=== PATIENT | male | born 1950 | race Caucasian/White ===

== ENCOUNTER 2018-12-03 11:36 | Emergency (ER) | payer MEDICARE, OTHER ==
[2018-12-03 12:04] LABS: ABSOLUTE BASOPHILS # (AUTO) 0.1 10^3/uL (0.0-0.2); ABSOLUTE LYMPHOCYTES (AUTO) 1.4 10^3/uL (0.5-4.7); ABSOLUTE MONOCYTES (AUTO) 0.6 10^3/uL (0.1-1.4); ABSOLUTE NEUT (AUTO) 6.2 10^3/uL (1.7-8.2); BASOPHILS % (AUTO) 0.9 % (0-2); EOSINOPHILS % (AUTO) 0.2 % (0-6); HEMATOCRIT 45.1 % (37.9-51.0); HEMOGLOBIN 15.5 g/dL (13.5-17.0); LYMPHOCYTES % (AUTO) 16.5 % (13-45); MEAN CORPUSCULAR HEMOGLOBIN 31.7 pg (27.0-33.4); MEAN CORPUSCULAR HGB CONC 34.4 g/dL (32.0-36.0); MEAN CORPUSCULAR VOLUME 92 fl (80-97); MONOCYTES % (AUTO) 7.4 % (3-13); PLATELET COUNT 234 10^3/uL (150-450); RED BLOOD COUNT 4.89 10^6/uL (4.35-5.55); RED CELL DISTRIBUTION WIDTH 13.6 % (11.5-14.0); TOTAL CELLS COUNTED % (AUTO) 100 %; WHITE BLOOD COUNT 8.3 10^3/uL (4.0-10.5)
[2018-12-03 12:14] LABS: INTERNATIONAL RATION (INR) 0.99; PROTHROMBIN TIME 13.1 SEC (11.4-15.4)
[2018-12-03 12:15] LABS: PARTIAL THROMBOPLASTIN TIME 26.8 SEC (23.5-35.8)
[2018-12-03 12:25] LABS: ALBUMIN 4.4 g/dL (3.5-5.0); ALKALINE PHOSPHATASE 62 U/L (38-126); ANION GAP 11 (5-19); ASPARTATE AMINO TRANSFERASE 17 U/L (17-59); BILIRUBIN,DIRECT 0.4 mg/dL (0.0-0.4); BLOOD UREA NITROGEN 23 mg/dL (7-20); CALCIUM 10.1 mg/dL (8.4-10.2); CARBON DIOXIDE 28 mmol/L (22-30); CHLORIDE 100 mmol/L (98-107); GLUCOSE 124 mg/dL (75-110); POTASSIUM 4.6 mmol/L (3.6-5.0); TOTAL PROTEIN 7.1 g/dL (6.3-8.2)
[2018-12-03 12:28] LABS: APPEARANCE,URINE CLEAR; BILIRUBIN,URINE NEGATIVE (NEGATIVE); COLOR,URINE YELLOW; GLUCOSE, URINE NEGATIVE (NEGATIVE); KETONES,URINE NEGATIVE (NEGATIVE); LEUKOCYTE ESTERASE,URINE NEGATIVE (NEGATIVE); NITRITE,URINE NEGATIVE (NEGATIVE); PROTEIN,URINE NEGATIVE (NEGATIVE); URINE SPECIFIC GRAVITY 1.017
--- NOTE | 2018-12-03 12:37 | RADIOLOGY REPORT (SQ) ---
EXAM DESCRIPTION: CHEST SINGLE VIEW COMPLETED DATE/TIME: 12/03/2018 12:23 pm REASON FOR STUDY: altered mental status COMPARISON: None EXAM PARAMETERS: NUMBER OF VIEWS: One view. TECHNIQUE: Single frontal radiographic view of the chest acquired. RADIATION DOSE: NA LIMITATIONS: None. FINDINGS: LUNGS AND PLEURA: No opacities, masses or pneumothorax. No pleural effusion. MEDIASTINUM AND HILAR STRUCTURES: No masses. Contour normal. HEART AND VASCULAR STRUCTURES: Heart normal in size. Normal vasculature. BONES: No acute findings. HARDWARE: None in the chest. OTHER: No other significant finding. IMPRESSION: NO ACUTE RADIOGRAPHIC FINDING IN THE CHEST. TECHNICAL DOCUMENTATION: JOB ID: [id number] [employer]- All Rights Reserved Reading location - IP/workstation name: [email or web address]
--- NOTE | 2018-12-03 12:37 | RADIOLOGY REPORT (SQ) ---
EXAM DESCRIPTION: CT HEAD WITHOUT COMPLETED DATE/TIME: 12/03/2018 12:25 pm REASON FOR STUDY: altered mental status COMPARISON: None. TECHNIQUE: Axial images acquired through the brain without intravenous contrast. Images reviewed wi th bone, brain and subdural windows. Additional sagittal and coronal reconstructions were generated. Images stored on PACS. All CT scanners at this facility use dose modulation, iterative reconstruction, and/or weight based d osing when appropriate to reduce radiation dose to as low as reasonably achievable (ALARA). [facility]: Dose Right [facility]: CareDose [facility]: Dose Right [facility]: Teradose 4D [facility]: Smart FathomDB RADIATION DOSE: CT Rad equipment meets quality standard of care and radiation dose reduction techniq ues were employed. CTDIvol: 53.2 - 55.2 mGy. DLP: 2019 mGy-cm. mGy. LIMITATIONS: None. FINDINGS: VENTRICLES: Normal size and contour. CEREBRUM: No masses. No hemorrhage. No midline shift. No evidence for acute infarction. Periventri cular white matter hypodensity. Lacunar infarction of the left internal capsule and gonzalez radiata. CEREBELLUM: No masses. No hemorrhage. No alteration of density. No evidence for acute infarction. EXTRAAXIAL SPACES: No fluid collections. No masses. ORBITS AND GLOBE: No intra- or extraconal masses. Normal contour of globe without masses. CALVARIUM: No fracture. PARANASAL SINUSES: No fluid or mucosal thickening. SOFT TISSUES: No mass or hematoma. OTHER: No other significant finding. IMPRESSION: 1. No acute intracranial pathology. 2. Small vessel white matter disease and a nonacute lacunar infarction of the left internal capsule. EVIDENCE OF ACUTE STROKE: NO. COMMENT: Quality ID # [id number]: Final reports with documentation of one or more dose reduction techniques (e.g., Automated exposure control, adjustment of the mA and/or kV according to patient size, use of iterative reconstruction technique) TECHNICAL DOCUMENTATION: JOB ID: [id number] [employer]- All Rights Reserved Reading location - IP/workstation name: [email or web address]
--- NOTE | 2018-12-03 12:42 | EKG REPORT ---
SEVERITY:- OTHERWISE NORMAL ECG - SINUS RHYTHM ATRIAL PREMATURE COMPLEX : Confirmed by: Louie Garsia MD 03-Dec-2018 12:41:46
--- NOTE | 2018-12-03 12:49 | ER Document Report ---
ED General - General Chief Complaint: Altered Mental Status Stated Complaint: ALTERED MENTAL STATUS Time Seen by Provider: 12/03/18 11:52 - HPI Notes: Patient is a 68-year-old male brought to the emergency department for evaluation by EMS. Evidently the patient was near [facility] of the [facility]. He was acting confused. Guards brought him to the station, gave him some water, and called EMS. The patient cannot relate to me how he got there. He denies any pain. He does not believe he is had any recent injuries. He is really not able to offer me any further meaningful history. - Related Data Allergies/Adverse Reactions: No Known Allergies Allergy (Unverified 12/03/18 12:36) Past Medical History - General Information source: [facility] Records - Social History Smoking Status: Unknown if Ever Smoked Family History: Other - Unknown - Past Medical History Cardiac Medical History: Reports: Hx Hypertension Review of Systems - Review of Systems -: Yes ROS unobtainable due to patient's medical condition Physical Exam - Vital signs Vitals: Temp Pulse Resp BP Pulse Ox 98 F 107 H 18 130/78 H 98 12/03/18 11:40 12/03/18 11:40 12/03/18 11:40 12/03/18 11:40 12/03/18 11:40 - Notes Notes: This is a very pleasant, well-kempt 68-year-old gentleman who appears his stated age in no acute distress. He does smell mildly of urine. Vital signs reviewed, please refer to chart. Head is normocephalic, atraumatic. Pupils equal round, reactive to light. Neck is supple without meningismus. Heart is regular rate and rhythm. Lungs are clear to auscultation bilaterally. Abdomen is soft, nontender, normoactive bowel sounds throughout. Extremities without cyanosis, clubbing. Posterior calves are nontender. Peripheral pulses are equal. Skin is warm and dry. Patient is awake, alert, but disoriented to person, place, and time. Patient with stutter and an expressive a aphasia intermittently. Cranial nerves II 12 are grossly intact without focal neurological deficits.. Strength is plus 5 out of 5 bilateral upper and lower extremities. Sensation is intact. Reflexes symmetrical. Intact [id number], rapid alternating movements, [id number]. Course - Re-evaluation Re-evalutation: 12/03/18 12:50 Patient presents emergency department for evaluation. He is a 68-year-old male, I am unable to get any significant history from him. From medical records around 6 years ago, I do note that he has a history of high blood pressure. I cannot locate any further records in regards to this patient. He remained stable here. His vital signs are largely unremarkable. Work-up here fails to reveal any significant acute abnormality. We will continue to monitor. 12/03/18 14:07 Patient's work-up here was essentially unremarkable. We were attempting to contact family members, we were unable to reach his on the phone number we had. We contacted Zakiya FLORES for possible drive by his house. We were notified at that time that he was a silver alert. He is well-known to the police. He has a history of dementia and has wandered out of the home multiple times. Patient's came to the ED. She states that she has been taking care of him solely for the last 6 years. She has absolutely no help at home. He is run away multiple times. Case management contacted to see if any further services can be offered. 12/03/18 14:52 Case management came and evaluated the patient. Discussed resources with patient's . Will discharge the patient, she is to follow-up with primary care, return to the ED with worsening or new concerning symptoms of any sort. - Vital Signs Vital signs: Temp Pulse Resp BP Pulse Ox 98 F 107 H 10 L 125/73 98 12/03/18 12:51 12/03/18 11:40 12/03/18 12:45 12/03/18 12:01 12/03/18 13:45 - Laboratory Result Diagrams: 12/03/18 11:48 12/03/18 11:48 Laboratory results interpreted by me: 12/03/18 12/03/18 11:48 12:04 BUN 23 H Est GFR (Non-Af Amer) 58 L Glucose 124 H Urine Urobilinogen 2.0 H - Diagnostic Test Radiology reviewed: Reports reviewed Radiology results interpreted by me: 12/03/18 12:51 Chest X-Ray 12/03/18 11:53 IMPRESSION: NO ACUTE RADIOGRAPHIC FINDING IN THE CHEST. Head CT 12/03/18 11:53 IMPRESSION: 1. No acute intracranial pathology. 2. Small vessel white matter disease and a nonacute lacunar infarction of the left internal capsule. EVIDENCE OF ACUTE STROKE: NO. - EKG Interpretation by Me Additional EKG results interpreted by me: 12/03/18 14:10 Sinus mechanism with a rate 87 bpm. Normal axis and intervals, no acute ST changes concerning for ischemia or infarction. Discharge - Discharge Clinical Impression: Dementia Condition: Stable Disposition: HOME, SELF-CARE Instructions: Dementia ([facility]) Additional Instructions: Follow-up with primary care this week. Return to the emergency department with worsening or new concerning symptoms of any sort.
[2018-12-03 15:04] VITALS: BP 120/64
== END 2018-12-03 15:04 | disposition home or self-care (01) ==
LOC: EDBD → ER 11:36
DX: F03.91 Unspecified dementia, unspecified severity, with behavioral disturbance (principal); Z91.83 Wandering in diseases classified elsewhere; I10 Essential (primary) hypertension; R47.01 Aphasia; F80.81 Childhood onset fluency disorder
CPT/HCPCS: 36415; 70450; 71045; 80053; 81001; 85025; 85610; 85730; 87040; 93005; 93010; 99285